=== PATIENT | male | born 1985 | race Caucasian/White ===

== ENCOUNTER 2021-08-06 20:04 | Emergency (ER) | payer SELFPAY ==
[~2021-08-06] VITALS: Ht 179 cm; Wt 61.2 kg
[~2021-08-06 20:04] MED LIST: ACHD5005 PO; ALPR.5T; ALPR.5T PO; AZIT250T12 PO; CARB100T; CEFP500T4 PO; CEPH-507 PO; CLIN300C3 PO; CODE118S4 PO; CYCL10TA9 PO; DOCU-143 PO; HYDR-2997 PO; HYDR-4226 PO; HYDR1TAB PO; LINE600T12 PO; LTRS15C TOP; MUPI22OI2 TOP; NAPR-243 PO; NAPR550T PO; ORPH100T PO; OSLT75C PO; PRD10T PO; PROP1TAB77 PO; QUET150T; QUET150T PO; SULF1TAB38 PO; TRM50T; TRM50T PO
--- NOTE | 2021-08-06 20:27 | ED General ---
General Stated Complaint: LIGHT HEADED, VOM Source of Information: Patient Exam Limitations: No Limitations History of Present Illness Date Seen by Provider: Aug 06, 2021 Time Seen by Provider: 20:24 Initial Comments To ER with reports of lightheadedness. Has been lightheaded anytime that he lays flat on his back since the head injury in the remote past. He was laying on his back working on a vehicle today when it started. Typically it goes away when he changes position but it has persisted throughout the day today. He has had some nausea and poor intake of food and fluids. Timing/Duration: 4-6 Hours Severity: Moderate Associated Systoms: Nausea/Vomiting Allergies and Home Medications Allergies Coded Allergies: Penicillins (Verified Allergy, Severe, Angioedema, 08/06/21) Sulfa (Sulfonamide Antibiotics) (Verified Allergy, Severe, Angioedema, 08/06/21) Patient Home Medication List Home Medication List Reviewed: Yes Review of Systems Review of Systems Constitutional: see HPI, dizziness EENTM: see HPI Respiratory: no symptoms reported Cardiovascular: no symptoms reported Gastrointestinal: nausea Genitourinary: no symptoms reported Musculoskeletal: no symptoms reported Skin: no symptoms reported Psychiatric/Neurological: No Symptoms Reported Hematologic/Lymphatic: No Symptoms Reported Physical Exam Vital Signs Vital Signs - First Documented 08/06/21 20:15 Temp 36.5 Pulse 59 Resp 24 B/P (MAP) 124/86 (99) Pulse Ox 98 Capillary Refill : Height, Weight, BMI Height: '" Weight: lbs. oz. kg; BMI Method: General Appearance: No Apparent Distress, WD/WN Eyes: Bilateral Eye Normal Inspection, Bilateral Eye PERRL, Bilateral Eye EOMI, Bilateral Eye Other (There is no nystagmus) HEENT: PERRL/EOMI, TMs Normal Neck: Full Range of Motion, Normal Inspection Respiratory: No Accessory Muscle Use, No Respiratory Distress Cardiovascular: Regular Rate, Rhythm, Normal Peripheral Pulses Gastrointestinal: Normal Bowel Sounds, Non Tender, Soft Extremity: Normal Capillary Refill, Normal Inspection Neurologic/Psychiatric: Alert, Oriented x3 Progress/Results/Core Measures Suspected Sepsis SIRS Temperature: Pulse: Respiratory Rate: Laboratory Tests 08/06/21 20:21: White Blood Count 9.7 Blood Pressure / Mean: Laboratory Tests 08/06/21 20:21: Creatinine 0.87, Platelet Count 268, Total Bilirubin 0.3 Results/Orders Lab Results Laboratory Tests Test 08/06/21 20:21 Range/Units White Blood Count 9.7 4.3-11.0 10^3/uL Red Blood Count 5.04 4.30-5.52 10^6/uL Hemoglobin 15.5 13.3-17.7 g/dL Hematocrit 45 40-54 % Mean Corpuscular Volume 89 80-99 fL Mean Corpuscular Hemoglobin 31 25-34 pg Mean Corpuscular Hemoglobin Concent 35 32-36 g/dL Red Cell Distribution Width 12.3 10.0-14.5 % Platelet Count 268 130-400 10^3/uL Mean Platelet Volume 9.9 9.0-12.2 fL Immature Granulocyte % (Auto) 0 % Neutrophils (%) (Auto) 58 42-75 % Lymphocytes (%) (Auto) 33 12-44 % Monocytes (%) (Auto) 6 0-12 % Eosinophils (%) (Auto) 2 0-10 % Basophils (%) (Auto) 1 0-10 % Neutrophils # (Auto) 5.6 1.8-7.8 10^3/uL Lymphocytes # (Auto) 3.2 1.0-4.0 10^3/uL Monocytes # (Auto) 0.6 0.0-1.0 10^3/uL Eosinophils # (Auto) 0.2 0.0-0.3 10^3/uL Basophils # (Auto) 0.1 0.0-0.1 10^3/uL Immature Granulocyte # (Auto) 0.0 0.0-0.1 10^3/uL Sodium Level 137 135-145 MMOL/L Potassium Level 3.4 L 3.6-5.0 MMOL/L Chloride Level 106 98-107 MMOL/L Carbon Dioxide Level 19 L 21-32 MMOL/L Anion Gap 12 5-14 MMOL/L Blood Urea Nitrogen 5 L 7-18 MG/DL Creatinine 0.87 0.60-1.30 MG/DL Estimat Glomerular Filtration Rate 115 BUN/Creatinine Ratio 6 Glucose Level 120 H 70-105 MG/DL Calcium Level 9.4 8.5-10.1 MG/DL Corrected Calcium 9.2 8.5-10.1 MG/DL Total Bilirubin 0.3 0.1-1.0 MG/DL Aspartate Amino Transf (AST/SGOT) 40 H 5-34 U/L Alanine Aminotransferase (ALT/SGPT) 27 0-55 U/L Alkaline Phosphatase 66 40-136 U/L Total Protein 7.2 6.4-8.2 GM/DL Albumin 4.2 3.2-4.5 GM/DL My Orders Orders - TYRON MARISCAL APRN Cbc With Automated Diff (08/06/21 20:23) Comprehensive Metabolic Panel (08/06/21 20:23) Ed Iv/Invasive Line Start (08/06/21 20:23) Lactated Ringers (Lr 1000 Ml Iv Solution (08/06/21 20:30) Ondansetron Injection (Zofran Injectio (08/06/21 20:30) Meclizine Tablet (Antivert Tablet) (08/06/21 20:30) Medications Given in ED Current Medications Medications Dose Ordered Sig/Erika Route Start Time Stop Time Status Last Admin Dose Admin Meclizine HCl 25 mg ONCE ONCE PO 08/06/21 20:30 08/06/21 20:31 DC 08/06/21 20:46 25 MG Ondansetron HCl 4 mg ONCE ONCE IVP 08/06/21 20:30 08/06/21 20:31 DC 08/06/21 20:46 4 MG Vital Signs/I&O 08/06/21 20:15 Temp 36.5 Pulse 59 Resp 24 B/P (MAP) 124/86 (99) Pulse Ox 98 Capillary Refill : Departure Impression Primary Impression: Dizziness Disposition: 01 HOME, SELF-CARE Condition: Stable Departure-Patient Inst. Decision time for Depature: 20:31 Referrals: [facility] (PCP/Family) Primary Care Physician Patient Instructions: Dizziness, Adult ED TYRON MARISCAL APRN Aug 06, 2021 20:27
[2021-08-06] MEDS ORDERED: MECLIZINE 25 MG (ANTIVERT) TAB PO ONE (20:30)
[2021-08-06] MEDS ORDERED: ONDANSETRON 4 MG/2 ML (SDV) Z0FRAN IVP ONE (20:30)
[2021-08-06] MEDS ORDERED: LACTATED RINGERS 1,000 ML IV SCH (20:30)
[2021-08-06 20:31] LABS: BASOPHILS # (AUTO) 0.1 10^3/uL (0.0-0.1); BASOPHILS % (AUTO) 1 % (0-10); EOSINOPHILS # (AUTO) 0.2 10^3/uL (0.0-0.3); EOSINOPHILS % (AUTO) 2 % (0-10); HEMATOCRIT 45 % (40-54); HEMOGLOBIN 15.5 g/dL (13.3-17.7); LYMPHOCYTES # (AUTO) 3.2 10^3/uL (1.0-4.0); LYMPHOCYTES % (AUTO) 33 % (12-44); MEAN CORPUSCULAR HEMOGLOBIN 31 pg (25-34); MEAN CORPUSCULAR HGB CONC 35 g/dL (32-36); MEAN CORPUSCULAR VOLUME 89 fL (80-99); MEAN PLATELET VOLUME 9.9 fL (9.0-12.2); MONOCYTES # (AUTO) 0.6 10^3/uL (0.0-1.0); MONOCYTES % (AUTO) 6 % (0-12); NEUTROPHILS # (AUTO) 5.6 10^3/uL (1.8-7.8); NEUTROPHILS % (AUTO) 58 % (42-75); PLATELET COUNT 268 10^3/uL (130-400); WHITE BLOOD COUNT 9.7 10^3/uL (4.3-11.0)
[2021-08-06 20:43] LABS: ALBUMIN 4.2 GM/DL (3.2-4.5)
[2021-08-06 20:44] LABS: POTASSIUM 3.4 MMOL/L (3.6-5.0)
[2021-08-06 20:45] LABS: CALCIUM 9.4 MG/DL (8.5-10.1)
[2021-08-06 20:46] LABS: TOTAL PROTEIN 7.2 GM/DL (6.4-8.2)
[2021-08-06 20:48] LABS: BILIRUBIN,TOTAL 0.3 MG/DL (0.1-1.0)
[2021-08-06 20:49] LABS: CREATININE SERUM 0.87 MG/DL (0.60-1.30)
[2021-08-06] MEDS ORDERED: SCOPOLAMINE 1.5 MG (TRANSDERM-SCOP) PATCH TD ONE (21:15)
[2021-08-06 21:25] VITALS: BP 117/84
== END 2021-08-06 21:27 | disposition home or self-care (01) ==
LOC: EDUNIT# 20:04 → ER 20:09
DX: R42 Dizziness and giddiness (principal)
CPT/HCPCS: 36415; 80053; 85025

== ENCOUNTER 2021-08-17 18:05 | Emergency (ER) | payer SELFPAY ==
[~2021-08-17] VITALS: Ht 177.8 cm; Wt 63.5 kg
[2021-08-17 18:25] VITALS: BP 123/90
--- NOTE | 2021-08-17 18:37 | ED Back Pain ---
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 NO PARESTHESIAS OR MOTOR DEFICITS NO RADIATION OF PAIN NO SHORTNESS OF BREATH NO NAUSEA/VOMITING NO URINARY SYMPTOMS NO COUGH NO FEVER/SWEATS/CHILLS TOOK TYLENOL AT 11:00 AM TODAY HAS TAKEN IBUPROFEN AT TIMES, BUT NOT TODAY HAS NOT SOUGHT CARE UNTIL TODAY NO HISTORY OF SIMILAR DENIES ANY CHRONIC ILLNESSES MULTIPLE VISITS--MOST FOR VARIOUS PAIN COMPLAINTS / INJURIES Other Comments PCP: [facility] Allergies and Home Medications Allergies Coded Allergies: Penicillins (Verified Allergy, Severe, Angioedema, 08/06/21) Sulfa (Sulfonamide Antibiotics) (Verified Allergy, Severe, Angioedema, 08/06/21) propoxyphene (Unverified Allergy, Mild, 08/09/21) shellfish derived (Unverified Allergy, Unknown, RASH, 08/09/21) FROM UNCODED ALLERGIES Uncoded Allergies: IVORY SOAP (Allergy, Mild, 08/09/21) Patient Home Medication List Home Medication List Reviewed: Yes Linezolid (Zyvox) 600 Mg Tablet, 600 MG PO BID Prescribed by: DEBORAH LAMBERT on 01/16/19 1053 Mupirocin (Mupirocin) 22 Gm Oint...g., 1 GM TOP BID Prescribed by: DEBORAH LAMBERT on 01/16/19 1053 Review of Systems Constitutional: no symptoms reported EENTM: no symptoms reported Respiratory: no symptoms reported Cardiovascular: no symptoms reported Gastrointestinal: no symptoms reported Genitourinary: no symptoms reported Musculoskeletal: see HPI Skin: no symptoms reported Psychiatric/Neurological: No Symptoms Reported Past Btdceat-Ulffvq-Zybsjf Hx Patient Social History Tobacco Use?: Yes Tobacco type used: Cigarettes Smoking Status: Current Everyday Smoker Substance use?: Yes Substance type: Methamphetamine, Marijuana Alcohol Use?: Yes Alcohol Frequency: Once in a while Immunizations Up To Date Tetanus Booster (TDap): Less than 5yrs Seasonal Allergies Seasonal Allergies: No Past Medical History Surgeries: Yes (HERNIA REPAIR A CHILD. ) Abdominal Respiratory: No Cardiac: No Neurological: No Genitourinary: No Gastrointestinal: No Musculoskeletal: Yes (MULTIPLE fractures including R scapula, R ribs & R clavicle 2019-[employer]KE) Fractures Endocrine: No HEENT: No Cancer: No Psychosocial: Yes (SUBSTANCE ABUSE) Integumentary: No Blood Disorders: No Family Medical History Asthma 19 FATHER FH: COPD (chronic obstructive pulmonary disease) 19 FATHER Hypertension 19 FATHER Seizure disorder 19 MOTHER No Pertinent Family Hx, Heart Disease, Cancer, Hypertension SOCIAL HISTORY: -SMOKES 1 PPD -ETOH--OCCASIONAL USE -DRUGS--HX OF SMOKING METH, CLAIMS NONE IN 3 YEARS, ON 08/17/21 Physical Exam Vital Signs Vital Signs - First Documented 08/17/21 18:25 Pulse 77 Resp 20 B/P (MAP) 123/90 (101) Pulse Ox 98 O2 Delivery Room Air Capillary Refill : Height, Weight, BMI Height: 5'10.00" Weight: 138lbs. 6.0oz. [id number]; 19.00 BMI Method:Stated General Appearance: WD/WN, Thin, Other (WALKS UPRIGHT VERY SLOWLY AND VERY DRAMATICALLY--MOANING AND GRUNTING. MARKEDLY EXAGGERATED PAIN RESPONSE--JERKS AND MOANS LOUDLY EVEN BEFORE HE IS TOUCHED, AND WITH VERY SLIGHT TOUCH; REEKS OF CIGARETTES) Neck: Full Range of Motion, Normal Inspection, Non Tender, Supple Cardiovascular: Regular Rate, Rhythm, No Edema, No JVD, No Murmur, Normal Peripheral Pulses Respiratory: Normal Breath Sounds, No Accessory Muscle Use, No Respiratory Distress, Other (DIFFUSE RIGHT CHEST WALL TENDERNESS--ANTERIORLY AND POSTERIORLY) Gastrointestinal: Non Tender, Soft Back: No Vertebral Tenderness, Other (DIFFUSE RIGHT POSTERIOR CHEST TENDERNESS. NO DEFORMITY. NO EXTERNAL EVIDENCE OF TRAUMA. NO RASH) Extremity: Normal Capillary Refill, Normal Inspection, Normal Range of Motion, Non Tender, No Calf Tenderness, No Pedal Edema Neurologic/Psychiatric: Alert, Oriented x3, No Motor/Sensory Deficits, turnstile collector II- XII Norm as Tested Skin: Normal Color, Warm/Dry; No Rash Procedures/Interventions Suture Size: 4-0 Progress/Results/Core Measures Results/Orders Lab Results Laboratory Tests Test 08/17/21 18:45 Range/Units Urine Color YELLOW Urine Clarity CLEAR Urine pH 6.0 5-9 Urine Specific Ulen 1.025 H 1.016-1.022 Urine Protein NEGATIVE NEGATIVE Urine Glucose (UA) NEGATIVE NEGATIVE Urine Ketones NEGATIVE NEGATIVE Urine Nitrite NEGATIVE NEGATIVE Urine Bilirubin NEGATIVE NEGATIVE Urine Urobilinogen 0.2 < = 1.0 MG/DL Urine Leukocyte Esterase NEGATIVE NEGATIVE Urine RBC (Auto) NEGATIVE NEGATIVE Urine RBC NONE /HPF Urine WBC NONE /HPF Urine Crystals PRESENT H /LPF Urine Amorphous Sediment RARE ARI URATES H /LPF Urine Bacteria NEGATIVE /HPF Urine Casts NONE /LPF Urine Mucus SMALL H /LPF Urine Culture Indicated NO Urine Opiates Screen POSITIVE H NEGATIVE Urine Oxycodone Screen NEGATIVE NEGATIVE Urine Methadone Screen NEGATIVE NEGATIVE Urine Propoxyphene Screen NEGATIVE NEGATIVE Urine Barbiturates Screen NEGATIVE NEGATIVE Ur Tricyclic Antidepressants Screen NEGATIVE NEGATIVE Urine Phencyclidine Screen NEGATIVE NEGATIVE Urine Amphetamines Screen NEGATIVE NEGATIVE Urine Methamphetamines Screen NEGATIVE NEGATIVE Urine Benzodiazepines Screen NEGATIVE NEGATIVE Urine Cocaine Screen NEGATIVE NEGATIVE Urine Cannabinoids Screen POSITIVE H NEGATIVE My Orders Orders - GERALDINE SALAS DO Drug Screen Stat (Urine) (08/17/21 18:31) Ua Culture If Indicated (08/17/21 18:31) Chest Pa/Lat (2 View) (08/17/21 18:31) Ribs, Right 2-3 Views (08/17/21 18:31) Vital Signs/I&O 08/17/21 18:25 Pulse 77 Resp 20 B/P (MAP) 123/90 (101) Pulse Ox 98 O2 Delivery Room Air Diagnostic Imaging Comments XRAYS--PER RADIOLOGIST REPORTS AT 1905 CXR-- FINDINGS: Lungs/pleura: Lungs are clear. There is no pneumothorax. There is no pleural effusion. Mediastinum: Unremarkable. Pulmonary vasculature: Unremarkable. Heart: Unremarkable. Bones/extrathoracic soft tissue: Unremarkable. IMPRESSION: There is no radiographic evidence of acute cardiopulmonary process. RIGHT RIBS-- FINDINGS AND IMPRESSION: 1: There is bony thickening and callus formation involving the posterior aspect of the right T2, T3, T4, T5, T6, and T7 ribs which appear to represent old healed fractures. 2: There is no definite acute fracture seen on this exam. 3: There is no other chest abnormality seen. Reviewed: Reviewed by Me Departure Impression Primary Impression: Right-sided chest wall pain Additional Impression: Upper back pain on right side Disposition: 01 HOME, SELF-CARE Condition: Stable Departure-Patient Inst. Decision time for Depature: 19:10 Referrals: [facility] (PCP/Family) Primary Care Physician Patient Instructions: Upper Back Pain, Back Muscle Strain (DC), Muscle Strain (DC) Add. Discharge Instructions: ALTERNATE ICE AND HEAT TO SORE AREAS AT 2O MINUTE INTERVALS FOLLOW UP WITH [facility] IN 1 WEEK FOR FURTHER CARE Scripts Cyclobenzaprine HCl (Cyclobenzaprine HCl) 10 Mg Tablet 10 MG PO Q8H PRN for SPASMS, #15 TAB 0 Refills Prov: GERALDINE SALAS DO 08/17/21 Naproxen (Naproxen) 500 Mg Tablet.dr 500 MG PO BID, #20 TAB Prov: GERALDINE SALAS DO 08/17/21 GERALDINE SALAS DO Aug 17, 2021 18:37
[2021-08-17 18:49] LABS: BILIRUBIN,URINE NEGATIVE (NEGATIVE); CLARITY,URINE CLEAR; COLOR,URINE YELLOW; GLUCOSE, URINE (UA) NEGATIVE (NEGATIVE); KETONES,URINE NEGATIVE (NEGATIVE); LEUKOCYTE ESTERASE ,URINE NEGATIVE (NEGATIVE); NITRITE,URINE NEGATIVE (NEGATIVE); PROTEIN,URINE NEGATIVE (NEGATIVE)
--- NOTE | 2021-08-17 19:00 | Diagnostic Imaging Report ---
CLINICAL INDICATION: Patient with pain in the right chest and back. EXAM: Chest x-ray, PA and lateral views. COMPARISON: Chest x-ray dated 10/05/2018. FINDINGS: Lungs/pleura: Lungs are clear. There is no pneumothorax. There is no pleural effusion. Mediastinum: Unremarkable. Pulmonary vasculature: Unremarkable. Heart: Unremarkable. Bones/extrathoracic soft tissue: Unremarkable. IMPRESSION: There is no radiographic evidence of acute cardiopulmonary process. Dictated by: Dictated on workstation # [id number]
[2021-08-17 19:01] LABS: AMORPHOUS SEDIMENT,UR RARE AMOR URATES /LPF; BACTERIA,URINE NEGATIVE /HPF
[2021-08-17 19:03] LABS: AMPHETAMINE SCREEN, URINE NEGATIVE (NEGATIVE); BARBITURATE SCREEN URINE NEGATIVE (NEGATIVE); BENZODIAZEPINES SCREEN URINE NEGATIVE (NEGATIVE); CANNABINOID SCREEN, URINE POSITIVE (NEGATIVE); COCAINE SCREEN URINE NEGATIVE (NEGATIVE); METHADONE STAT NEGATIVE (NEGATIVE); METHAMPHETAMINE SCREEN URINE S NEGATIVE (NEGATIVE); OPIATE SCREEN URINE POSITIVE (NEGATIVE); OXYCODONE STAT NEGATIVE (NEGATIVE); PROPOXYPHENE STAT NEGATIVE (NEGATIVE); TRICYCLIC ANTIDEPRESSANTS SCRE NEGATIVE (NEGATIVE)
--- NOTE | 2021-08-17 19:03 | Diagnostic Imaging Report ---
CLINICAL INDICATION: Patient with pain in chest and back. EXAM: X-ray of the right ribs, two views. COMPARISON: Chest x-ray dated 08/17/2021. FINDINGS AND IMPRESSION: 1: There is bony thickening and callus formation involving the posterior aspect of the right T2, T3, T4, T5, T6, and T7 ribs which appear to represent old healed fractures. 2: There is no definite acute fracture seen on this exam. 3: There is no other chest abnormality seen. Dictated by: Dictated on workstation # [id number]
[2021-08-17] MEDS ORDERED: CYCL10TA25 PO (19:13)
[2021-08-17] MEDS ORDERED: NAPR500T8 PO (19:13)
[2021-08-17] MEDS ORDERED: ORPHENADRINE 60 MG/2 ML (NORFLEX) AMP (ED ONLY) IM STA (19:13)
[2021-08-17] MEDS ORDERED: KETOROLAC 60 MG/2 ML VIAL IM STA (19:13)
[2021-08-17] MEDS ORDERED: ORPHENADRINE 60 MG/2 ML (NORFLEX) AMP (ED ONLY) ONE (19:19)
[2021-08-17] MEDS ORDERED: KETOROLAC 60 MG/2 ML VIAL ONE (19:19)
== END 2021-08-17 19:31 | disposition home or self-care (01) ==
LOC: EDUNIT# 18:05 → ER 18:07
DX: R07.89 Other chest pain (principal); M54.6 Pain in thoracic spine; F17.210 Nicotine dependence, cigarettes, uncomplicated
CPT/HCPCS: 71046; 71100; 80306; 81000; 99284

== ENCOUNTER 2021-11-05 18:25 | Emergency (ER) | payer SELFPAY ==
[~2021-11-05 18:25] MED LIST changes: +CYCL10TA25 PO; +NAPR500T8 PO
[2021-11-05 18:55] VITALS: BP 131/78
[2021-11-05] MEDS ORDERED: NS IV 1000 ML 1,000 ML IV STA ×2 (19:01→20:39)
--- NOTE | 2021-11-05 19:06 | ED Cough/URI ---
General Chief Complaint: Cough/Cold/Flu Symptoms Stated Complaint: FEVER/VOMITING/BODYACHES Source: patient Exam Limitations: no limitations History of Present Illness Date Seen by Provider: Nov 05, 2021 Time Seen by Provider: 19:03 Initial Comments Patient is a 36-year-old male who presents ED for generalized weakness, body cramping fatigue. Symptoms started this morning. 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 He states he sat on the sidewalk and passed out. Unclear how long he passed out for. Denies falling and hitting his head. Woke up with a headache with diffuse body cramps and cramping. Attempted to drink fluid but was unsuccessful. Has not been able to eat.. Vo mited at least 5 times since noon today. Denies of any cough, fever, chest pain, abdominal pain, drug use, alcohol use. States he feels weak and fatigued. Dry heaving on arrival. Head pain described as dull and achy and diffuse. Denies the worst headache of his life, neck pain, visual changes, ear pain, dysuria, hematuria. Patient alert and orient x4. GCS 15. Denies of any focal neural deficits, facial droop, slurred speech. Allergies and Home Medications Allergies Coded Allergies: Penicillins (Verified Allergy, Severe, Angioedema, 08/06/21) Sulfa (Sulfonamide Antibiotics) (Verified Allergy, Severe, Angioedema, 08/06/21) propoxyphene (Unverified Allergy, Mild, 08/09/21) shellfish derived (Unverified Allergy, Unknown, RASH, 08/09/21) FROM UNCODED ALLERGIES Uncoded Allergies: IVORY SOAP (Allergy, Mild, 08/09/21) Patient Home Medication List Home Medication List Reviewed: Yes Cyclobenzaprine HCl (Cyclobenzaprine HCl) 10 Mg Tablet, 10 MG PO Q8H PRN for SPASMS Prescribed by: GERALDINE SALAS on 08/17/211912 Linezolid (Zyvox) 600 Mg Tablet, 600 MG PO BID Prescribed by: DEBORAH LAMBERT on 01/16/19 1053 Mupirocin (Mupirocin) 22 Gm Oint...g., 1 GM TOP BID Prescribed by: DEBORAH LAMBERT on 01/16/19 1053 Naproxen (Naproxen) 500 Mg Tablet.dr, 500 MG PO BID Prescribed by: GERALDINE SALAS on 08/17/211912 Nirmatrelvir/Ritonavir (Paxlovid 150-100 mg Pack (Eua)) 150 Mg-100 Mg Tablet, 1 EACH PO BID Prescribed by: SELINA DASILVA on 11/05/212125 Review of Systems Review of Systems Constitutional: No chills, No diaphoresis, No malaise, No weakness EENTM: No blurred vision, No double vision Respiratory: No cough, No dyspnea on exertion, No short of breath Cardiovascular: No chest pain Gastrointestinal: No abdominal pain, No diarrhea; nausea, vomiting Genitourinary: No decreased output, No discharge Musculoskeletal: No back pain, No joint pain Skin: No change in color, No change in hair/nails Psychiatric/Neurological: Headache All Other Systems Reviewed Negative Unless Noted: Yes Past Nsrbhog-Devybe-Gwkaai Hx Immunizations Up To Date Tetanus Booster (TDap): Less than 5yrs Seasonal Allergies Seasonal Allergies: No Past Medical History Surgeries: Yes (HERNIA REPAIR A CHILD. ) Abdominal Respiratory: No Cardiac: No Neurological: No Genitourinary: No Gastrointestinal: No Musculoskeletal: Yes (MULTIPLE fractures including R scapula, R ribs & R clavicle 2019-[employer]) Fractures Endocrine: No HEENT: No Cancer: No Psychosocial: Yes (SUBSTANCE ABUSE) Integumentary: No Blood Disorders: No Family Medical History Asthma 19 FATHER FH: COPD (chronic obstructive pulmonary disease) 19 FATHER Hypertension 19 FATHER Seizure disorder 19 MOTHER No Pertinent Family Hx, Heart Disease, Cancer, Hypertension SOCIAL HISTORY: -SMOKES 1 PPD -ETOH--OCCASIONAL USE -DRUGS--HX OF SMOKING METH, CLAIMS NONE IN 3 YEARS, ON 08/17/21 Physical Exam Vital Signs - First Documented 11/05/21 18:55 Temp 37.2 Pulse 83 Resp 20 B/P (MAP) 131/78 (95) Capillary Refill : Height: 5'10.00" Weight: 138lbs. 6.0oz. 62.558541dc; 20.00 BMI Method:Stated General Appearance: WD/WN, no apparent distress Eyes: Bilateral Eye Normal Inspection, Bilateral Eye PERRL, Bilateral Eye EOMI HEENT: PERRL/EOMI, normal ENT inspection, TMs normal, pharynx normal Neck: non-tender, full range of motion, supple, normal inspection Respiratory: chest non-tender, lungs clear, normal breath sounds, no respiratory distress, no accessory muscle use Cardiovascular: regular rate, rhythm, no edema, no gallop, no JVD Gastrointestinal: normal bowel sounds, non tender, soft, no organomegaly Extremities: normal range of motion, non-tender, normal inspection Neurologic/Psychiatric: debt collector II-XII nml as tested, no motor/sensory deficits, alert, normal mood/affect, oriented x 3 Skin: normal color, warm/dry Procedures/Interventions Suture Size: 4-0 Progress/Results/Core Measures Suspected Sepsis SIRS Temperature: Pulse: Respiratory Rate: Laboratory Tests 11/05/21 18:55: White Blood Count 5.6 Blood Pressure / Mean: Laboratory Tests 11/05/21 18:55: Creatinine 0.96, Platelet Count 182, Total Bilirubin 0.7 Results/Orders Lab Results Laboratory Tests Test 11/05/21 18:50 11/05/21 18:55 Range/Units Influenza Type A (RT-PCR) Not Detected Not Detecte Influenza Type B (RT-PCR) Not Detected Not Detecte SARS-CoV-2 RNA (RT-PCR) Detected H Not Detecte White Blood Count 5.6 4.3-11.0 10^3/uL Red Blood Count 4.88 4.30-5.52 10^6/uL Hemoglobin 14.8 13.3-17.7 g/dL Hematocrit 43 40-54 % Mean Corpuscular Volume 88 80-99 fL Mean Corpuscular Hemoglobin 30 25-34 pg Mean Corpuscular Hemoglobin Concent 35 32-36 g/dL Red Cell Distribution Width 12.0 10.0-14.5 % Platelet Count 182 130-400 10^3/uL Mean Platelet Volume 10.4 9.0-12.2 fL Immature Granulocyte % (Auto) 0 % Neutrophils (%) (Auto) 83 H 42-75 % Lymphocytes (%) (Auto) 7 L 12-44 % Monocytes (%) (Auto) 9 0-12 % Eosinophils (%) (Auto) 1 0-10 % Basophils (%) (Auto) 1 0-10 % Neutrophils # (Auto) 4.6 1.8-7.8 10^3/uL Lymphocytes # (Auto) 0.4 L 1.0-4.0 10^3/uL Monocytes # (Auto) 0.5 0.0-1.0 10^3/uL Eosinophils # (Auto) 0.1 0.0-0.3 10^3/uL Basophils # (Auto) 0.0 0.0-0.1 10^3/uL Immature Granulocyte # (Auto) 0.0 0.0-0.1 10^3/uL Neutrophils % (Manual) 79 % Lymphocytes % (Manual) 9 % Monocytes % (Manual) 11 % Band Neutrophils 1 % Blood Morphology Comment NORMAL Sodium Level 141 135-145 MMOL/L Potassium Level 3.7 3.6-5.0 MMOL/L Chloride Level 106 98-107 MMOL/L Carbon Dioxide Level 23 21-32 MMOL/L Anion Gap 12 5-14 MMOL/L Blood Urea Nitrogen 7 7-18 MG/DL Creatinine 0.96 0.60-1.30 MG/DL Estimat Glomerular Filtration Rate 106 BUN/Creatinine Ratio 7 Glucose Level 96 70-105 MG/DL Calcium Level 9.3 8.5-10.1 MG/DL Corrected Calcium 9.0 8.5-10.1 MG/DL Magnesium Level 1.9 1.6-2.4 MG/DL Total Bilirubin 0.7 0.1-1.0 MG/DL Aspartate Amino Transf (AST/SGOT) 33 5-34 U/L Alanine Aminotransferase (ALT/SGPT) 23 0-55 U/L Alkaline Phosphatase 61 40-136 U/L Total Creatine Kinase 702 H 30-200 U/L Total Protein 7.1 6.4-8.2 GM/DL Albumin 4.4 3.2-4.5 GM/DL My Orders Orders - KIRSTIN CAMPBELL Covid 19 Inhouse Test (11/05/21 18:29) Influenza A And B By Pcr (11/05/21 18:29) Cbc With Automated Diff (11/05/21 19:01) Comprehensive Metabolic Panel (11/05/21 19:01) Magnesium (11/05/21 19:01) Creatine Kinase (11/05/21 19:01) Ns Iv 1000 Ml (Sodium Chloride 0.9%) (11/05/21 19:01) Ondansetron Injection (Zofran Injectio (11/05/21 19:15) Manual Differential (11/05/21 18:55) Promethazine Injection (Phenergan Injec (11/05/21 20:00) Ns Iv 1000 Ml (Sodium Chloride 0.9%) (11/05/21 20:39) Acetaminophen Tablet (Tylenol Tablet) (11/05/21 21:15) Medications Given in ED Vital Signs/I&O 11/05/21 18:55 Temp 37.2 Pulse 83 Resp 20 B/P (MAP) 131/78 (95) Capillary Refill : Departure Communication (PCP) Patient is complaining of generalized body pain, cramping. Symptoms started today. States he passed out while sitting on the sidewalk after work. Initially concern for rhabdo secondary to the diffuse muscle cramping. Patient started complaining of cough body aches fatigue which could be recent related to a viral infection. Patient tested positive for COVID. Patient lab work was otherwise unremarkable besides CK of 702. Attempted to give fluid but patient was not cooperating and not keeping out his arm. Patient became frustrated and states he wanted to leave. Discussed concerning for rhabdo which would likely benefit with IV fluids. Very mild rhabdo. patient is not up-to-date on his COVID discussed potential monoclonal antibody versus paxlovid. Patient refused monoclonal antibody but was agreeable to the paxlovid. Patient is not currently on any statins. Denies history of HIV. Patient refused providing urinalysis. Patient with dry heaving here. Was given Zofran and Phenergan. Patient was sticking a finger down his mouth which may be resulting of his vomiting. Refused a second liter of fluid. Discussed concerns with rhabdomyolysis. Patient acknowledges. Return precaution were discussed with patient. Follow-up outpatient with PCP in 2 to 3 days Impression Primary Impression: COVID-19 Disposition: 01 HOME, SELF-CARE Condition: Stable Departure-Patient Inst. Decision time for Depature: 21:19 Referrals: [facility]LOCAL PHYSICIAN (PCP) Primary Care Physician Patient Instructions: COVID-19 ED Add. Discharge Instructions: Recommend quarantine at home. Recommend staying hydrated. Tylenol ibuprofen fo r fever headache body aches. If any worsening symptoms return back to ED. All discharge instructions reviewed with patient and/or family. Voiced understanding. Scripts Nirmatrelvir/Ritonavir (Paxlovid 150-100 mg Pack (Eua)) 150 Mg-100 Mg Tablet 1 EACH PO BID for 5 Days, #10 TAB Prov: KIRSTIN CAMPBELL 11/05/21 Work/School Note: Work Release Form Date Seen in the Emergency Department: Nov 05, 2021 Return to Work: Nov 14, 2021 KIRSTIN CAMPBELL Nov 05, 2021 19:06
[2021-11-05] MEDS ORDERED: ONDANSETRON 4 MG/2 ML (SDV) Z0FRAN IVP ONE (19:15)
[2021-11-05 19:17] LABS: BASOPHILS % (AUTO) 1 % (0-10); EOSINOPHILS # (AUTO) 0.1 10^3/uL (0.0-0.3); EOSINOPHILS % (AUTO) 1 % (0-10); HEMATOCRIT 43 % (40-54); HEMOGLOBIN 14.8 g/dL (13.3-17.7); LYMPHOCYTES # (AUTO) 0.4 10^3/uL (1.0-4.0); LYMPHOCYTES % (AUTO) 7 % (12-44); MEAN CORPUSCULAR HEMOGLOBIN 30 pg (25-34); MEAN CORPUSCULAR HGB CONC 35 g/dL (32-36); MEAN CORPUSCULAR VOLUME 88 fL (80-99); MEAN PLATELET VOLUME 10.4 fL (9.0-12.2); MONOCYTES # (AUTO) 0.5 10^3/uL (0.0-1.0); MONOCYTES % (AUTO) 9 % (0-12); NEUTROPHILS # (AUTO) 4.6 10^3/uL (1.8-7.8); NEUTROPHILS % (AUTO) 83 % (42-75); PLATELET COUNT 182 10^3/uL (130-400); WHITE BLOOD COUNT 5.6 10^3/uL (4.3-11.0)
[2021-11-05 19:28] LABS: ALBUMIN 4.4 GM/DL (3.2-4.5); BILIRUBIN,TOTAL 0.7 MG/DL (0.1-1.0); CALCIUM 9.3 MG/DL (8.5-10.1); CREATININE SERUM 0.96 MG/DL (0.60-1.30); MAGNESIUM 1.9 MG/DL (1.6-2.4); POTASSIUM 3.7 MMOL/L (3.6-5.0); TOTAL PROTEIN 7.1 GM/DL (6.4-8.2)
[2021-11-05] MEDS ORDERED: PROMETHAZINE INJ 25 MG/ML (PHENERGAN) AMP IVP ONE (20:00)
[2021-11-05 20:44] LABS: BAND NEUTROPHILS 1 %; LYMPHOCYTES % (MANUAL) 9 %; MONOCYTES % (MANUAL) 11 %; NEUTROPHILS % (MANUAL) 79 %
[2021-11-05 20:45] LABS: RBC MORPH NORMAL
[2021-11-05] MEDS ORDERED: ACETAMINOPHEN 500 MG TAB (TYLENOL) PO ONE (21:15)
[2021-11-05] MEDS ORDERED: NIRM1TAB5 PO (21:26)
== END 2021-11-05 21:35 | disposition home or self-care (01) ==
LOC: EDUNIT# 18:25 → ER 18:26
DX: U07.1 COVID-19 (principal)
CPT/HCPCS: 36415; 80053; 82550; 83735; 85007; 85027; 87636; 99283

== ENCOUNTER 2022-04-04 23:04 | Emergency (ER) | payer SELFPAY ==
[~2022-04-04 23:04] MED LIST changes: +NIRM1TAB5 PO
[2022-04-04] MEDS ORDERED: CYCL5TAB PO (23:22)
[2022-04-04] MEDS ORDERED: KETO10TA PO (23:22)
[2022-04-04 23:23] VITALS: BP 118/102
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
[2022-04-04] MEDS ORDERED: KETOROLAC 30 MG/ML VIAL IM PRN (23:30)
[2022-04-04] MEDS ORDERED: CYCLOBENZAPRINE 10 MG (FLEXERIL) TAB PO SCH (23:30)
== END 2022-04-04 23:34 | disposition home or self-care (01) ==
LOC: EDUNIT# 23:04 → ER 23:07
DX: M54.6 Pain in thoracic spine (principal); Z28.310 Unvaccinated for COVID-19; Z88.5 Allergy status to narcotic agent; X50.0XXA Overexertion from strenuous movement or load, initial encounter
CPT/HCPCS: 99284

== ENCOUNTER 2022-09-20 09:18 | Emergency (ER) | payer SELFPAY ==
[~2022-09-20] VITALS: Ht 180 cm; Wt 120.0 kg
[~2022-09-20 09:18] MED LIST changes: +CYCL5TAB PO; +KETO10TA PO
[2022-09-20] MEDS ORDERED: PROMETHAZINE INJ 25 MG/ML (PHENERGAN) AMP IVP STA (09:25)
[2022-09-20] MEDS ORDERED: NS IV 1000 ML 1,000 ML IV STA (09:25)
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
[2022-09-20] MEDS ORDERED: MECLIZINE 25 MG (ANTIVERT) TAB PO ONE (09:30)
[2022-09-20] MEDS ORDERED: PROM25TA14 PO (09:40)
[2022-09-20 10:26] VITALS: BP 102/74
== END 2022-09-20 10:26 | disposition home or self-care (01) ==
LOC: EDUNIT# 09:18 → ER 09:20
DX: H81.10 Benign paroxysmal vertigo, unspecified ear (principal); Z28.310 Unvaccinated for COVID-19
CPT/HCPCS: 82947; 93005; 93041

== ENCOUNTER 2022-10-02 01:52 | Emergency (ER) | payer SELFPAY ==
[~2022-10-02] VITALS: Ht 180.3 cm; Wt 62.6 kg
[~2022-10-02 01:52] MED LIST changes: +PROM25TA14 PO
[2022-10-02 02:06] VITALS: BP 135/97
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
[2022-10-02] MEDS ORDERED: CYCLOBENZAPRINE 10 MG (FLEXERIL) TAB PO STA (02:37)
== END 2022-10-02 02:49 | disposition home or self-care (01) ==
LOC: EDUNIT# 01:52 → ER 01:55
DX: M77.8 Other enthesopathies, not elsewhere classified (principal); F17.210 Nicotine dependence, cigarettes, uncomplicated; Z87.828 Personal history of other (healed) physical injury and trauma; Z28.310 Unvaccinated for COVID-19
CPT/HCPCS: 99284

== ENCOUNTER 2022-11-08 21:36 | Emergency (ER) | payer SELFPAY ==
[~2022-11-08] VITALS: Ht 180.3 cm; Wt 62.1 kg
[2022-11-08 21:42] VITALS: BP 115/73
--- NOTE | 2022-11-08 21:56 | ED Back Pain ---
General Chief Complaint: Back Problems Stated Complaint: BACK PAIN Nursing Triage Note: PT AMB TO FT 2 W C/O BILAT ARM TINGLING X4 WKS, BACK PAIN SX LAST NIGHT, AND LEFT KNEE PAIN THAT BEGAN TONIGHT. PT A&OX4, DENIES INJ. History of Present Illness Date Seen by Provider: Nov 08, 2022 Time Seen by Provider: 21:54 Initial Comments 37-year-old male presents with upper back pain and paraspinal pain. 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 He also complains of bilateral arm tingling for at least 4 weeks worse with lifting holding his arms up. He denies any acute injury falls or other trauma. Allergies and Home Medications Allergies Coded Allergies: Penicillins (Verified Allergy, Severe, Angioedema, 08/06/21) Sulfa (Sulfonamide Antibiotics) (Verified Allergy, Severe, Angioedema, 08/06/21) propoxyphene (Unverified Allergy, Mild, 08/09/21) shellfish derived (Unverified Allergy, Unknown, RASH, 08/09/21) FROM UNCODED ALLERGIES tramadol (Verified Allergy, Unknown, 11/08/22) Uncoded Allergies: IVORY SOAP (Allergy, Mild, 08/09/21) Patient Home Medication List Home Medication List Reviewed: Yes Cyclobenzaprine HCl (Cyclobenzaprine HCl) 10 Mg Tablet, 10 MG PO Q8H PRN for SPASMS Prescribed by: GERALDINE SALAS on 08/17/211912 Cyclobenzaprine HCl (Cyclobenzaprine HCl) 5 Mg Tablet, 5 MG PO Q6H Prescribed by: DANITZA GRUBER on 11/08/222200 Ketorolac Tromethamine (Ketorolac Tromethamine) 10 Mg Tablet, 10 MG PO TID Prescribed by: YUSUF ARAIZA MD on 04/04/22 2322 Linezolid (Zyvox) 600 Mg Tablet, 600 MG PO BID Prescribed by: DEBORAH LAMBERT on 01/16/19 1053 Mupirocin (Mupirocin) 22 Gm Oint...g., 1 GM TOP BID Prescribed by: DEBORAH LAMBERT on 01/16/19 1053 Naproxen (Naproxen) 500 Mg Tablet.dr, 500 MG PO BID Prescribed by: DANITZA GRUBER on 11/08/222200 Nirmatrelvir/Ritonavir (Paxlovid 150-100 mg Pack (Eua)) 150 Mg-100 Mg Tablet, 1 EACH PO BID Prescribed by: SELINA DASILVA on 11/05/212125 Promethazine HCl (Promethazine Tablet) 25 Mg Tablet, 25 MG PO Q8H PRN for NAUSEA/VOMITING-2ND LINE Prescribed by: KIRSTIN ALMONTE on 09/20/22 0940 Review of Systems Constitutional: No chills, No fever Respiratory: no symptoms reported Cardiovascular: no symptoms reported Gastrointestinal: no symptoms reported Musculoskeletal: see HPI Skin: no symptoms reported Psychiatric/Neurological: No Symptoms Reported Past Cfhptpi-Yctdde-Pvzxjg Hx Patient Social History Tobacco Use?: Yes Tobacco type used: Cigarettes Smoking Status: Current Everyday Smoker Use of E-Cig and/or Vaping dev: No Substance use?: Yes Substance type: Marijuana Alcohol Use?: Yes Alcohol Frequency: Once in a while Immunizations Up To Date Tetanus Booster (TDap): Less than 5yrs Influenza Vaccine Up-to-Date: No; Not Current First/Initial COVID19 Vaccinat: NONE Second COVID19 Vaccination Garfield: NONE Third COVID19 Vaccination Date: NONE COVID19 Vaccine Clutch Mechanic: NONE Seasonal Allergies Seasonal Allergies: No Past Medical History Surgery/Hospitalization HX: HERNIA AFTER Surgeries: Yes (HERNIA REPAIR A CHILD. ) Abdominal Respiratory: No Cardiac: No Neurological: No Genitourinary: No Gastrointestinal: No Musculoskeletal: Yes (MULTIPLE fractures including R scapula, R ribs & R clavicle 2019-[facility]) Fractures Endocrine: No HEENT: No Cancer: No Psychosocial: Yes (SUBSTANCE ABUSE) Integumentary: No Blood Disorders: No Family Medical History Asthma 19 FATHER FH: COPD (chronic obstructive pulmonary disease) 19 FATHER Hypertension 19 FATHER Seizure disorder 19 MOTHER No Pertinent Family Hx, Heart Disease, Cancer, Hypertension SOCIAL HISTORY: -SMOKES 1 PPD -ETOH--OCCASIONAL USE -DRUGS--HX OF SMOKING METH, CLAIMS NONE IN 3 YEARS, ON 08/17/21 Physical Exam Vital Signs Vital Signs - First Documented 11/08/22 21:42 Temp 36.6 Pulse 70 Resp 18 B/P (MAP) 115/73 (87) Pulse Ox 98 O2 Delivery Room Air Capillary Refill : Less Than 3 Seconds Height, Weight, BMI Height: 5'10.00" Weight: 138lbs. 6.0oz. 62.435691ux; 19.00 BMI Method:Stated General Appearance: No Apparent Distress, WD/WN Cardiovascular: Regular Rate, Rhythm, No Edema Respiratory: Lungs Clear, Normal Breath Sounds Gastrointestinal: Non Tender, Soft Back: Other (mild paraspinal muscle tightness ) Extremity: Normal Capillary Refill, Normal Inspection, Normal Range of Motion Neurologic/Psychiatric: Alert, Oriented x3 Skin: Normal Color, Warm/Dry Procedures/Interventions Suture Size: 4-0 Progress/Results/Core Measures Results/Orders My Orders Orders - GRUBER,DANITZA L DO Thoracic Spine, 2 Views Only (11/08/22 21:56) Vital Signs/I&O 11/08/22 21:42 Temp 36.6 Pulse 70 Resp 18 B/P (MAP) 115/73 (87) Pulse Ox 98 O2 Delivery Room Air Blood Pressure Mean: 87 Departure Impression Primary Impression: Thoracic radiculopathy Additional Impressions: Strain of thoracic paraspinal muscles excluding T1 and T2 levels Qualified Codes: S29.012A - Strain of muscle and tendon of back wall of thorax, initial encounter Paraspinal muscle spasm Disposition: 01 HOME, SELF-CARE Condition: Stable Departure-Patient Inst. Referrals: [facility] (PCP/Family) Primary Care Physician Patient Instructions: Using Heat for Pain, Muscle Spasm ED, Exercises for Upper Back Pain, Radiculopathy (DC) Add. Discharge Instructions: 4% topical lidocaine with menthol cream gel or patch use as directed on package. Voltaren/diclofenac cream or gel use as directed on package. Warm moist heat to upper back for 10 to 15 minutes at a time 3-4 times daily. May consider massage therapy. Follow-up with your primary care provider to consider physical therapy. All discharge instructions reviewed with patient and/or family. Voiced understanding. Scripts Cyclobenzaprine HCl (Cyclobenzaprine HCl) 5 Mg Tablet 5 MG PO Q6H for Muscle Spasms for 7 Days, #28 TAB Prov: GRUBER,DANITZA L DO 11/08/22 Naproxen (Naproxen) 500 Mg Tablet.dr 500 MG PO BID, #20 TAB Prov: GRUBER,DANITZA L DO 11/08/22 GRUBER,DANITZA L DO Nov 08, 2022 21:56
[2022-11-08] MEDS ORDERED: NAPR500T8 PO (22:01)
[2022-11-08] MEDS ORDERED: CYCL5TAB PO (22:01)
[2022-11-08] MEDS ORDERED: KETOROLAC 30 MG/ML VIAL IM STA (22:39)
[2022-11-08] MEDS ORDERED: ORPHENADRINE 60 MG/2 ML (NORFLEX) AMP (ED ONLY) IM STA (22:39)
--- NOTE | 2022-11-09 07:34 | Diagnostic Imaging Report ---
INDICATION: Mid back pain. Pain with coughing and laughing. EXAMINATION: Thoracic spine 11/08/2022 FINDINGS: 2 views of the thoracic spine Normal height and alignment of the vertebral bodies noted. No acute osseous abnormality is appreciated. Multiple old right rib fractures noted. IMPRESSION: 1. Negative thoracic spine. Dictated by: Dictated on workstation # [id number]
== END 2022-11-08 22:56 | disposition home or self-care (01) ==
LOC: EDUNIT# 21:36 → ER 21:39
DX: S29.012A Strain of muscle and tendon of back wall of thorax, initial encounter (principal); M54.14 Radiculopathy, thoracic region; F17.210 Nicotine dependence, cigarettes, uncomplicated; Z28.310 Unvaccinated for COVID-19; X50.0XXA Overexertion from strenuous movement or load, initial encounter; Y92.69 Other specified industrial and construction area as the place of occurrence of the external cause; Y99.0 Civilian activity done for income or pay
CPT/HCPCS: 72070

== ENCOUNTER 2022-12-18 19:43 | Emergency (ER) | payer SELFPAY ==
[2022-12-18] MEDS ORDERED: RT-ALBUTEROL SULF 2.5 MG/3 ML PRE-MIX VIAL INH ONE (20:15)
[2022-12-18] MEDS ORDERED: predniSONE 20 MG TAB PO ONE (20:15)
--- NOTE | 2022-12-18 20:18 | ED Cough/URI ---
General Chief Complaint: Respiratory Problems Stated Complaint: SOA Source: patient Exam Limitations: no limitations History of Present Illness Date Seen by Provider: Dec 18, 2022 Time Seen by Provider: 20:15 Initial Comments Patient is a 37-year-old male who presents to ED with cough, nasal congestion, sore throat, ear pain body aches and chills. Symptoms started Monday morning. Reported a dry nonproductive cough. Nasal congestion bilateral ear fullness. Started having some shortness of breath today. Went to urgent care diagnosed with walking pneumonia was discharged with azithromycin. Did receive a albuterol inhaler without much improvement. Reports wheezing. Denies of any specific chest pain or abdominal pain. 1 episode of vomiting after coughing today. Denies any diarrhea. Family with similar symptoms. Tested negative for strep and COVID. History of daily smoking. No history of coronary artery disease, known COPD or asthma. Patient main complaint is continuous cough. Patient vital signs stable on arrival. No evidence of respiratory distress. Reports subjective fever chills body aches. Allergies and Home Medications Allergies Coded Allergies: Penicillins (Verified Allergy, Severe, Angioedema, 08/06/21) Sulfa (Sulfonamide Antibiotics) (Verified Allergy, Severe, Angioedema, 08/06/21) propoxyphene (Unverified Allergy, Mild, 08/09/21) shellfish derived (Unverified Allergy, Unknown, RASH, 08/09/21) FROM UNCODED ALLERGIES tramadol (Verified Allergy, Unknown, 11/08/22) Uncoded Allergies: IVORY SOAP (Allergy, Mild, 08/09/21) Patient Home Medication List Home Medication List Reviewed: Yes Albuterol Sulfate (Albuterol Sulfate) 2.5 Mg/0.5 Ml Vial.neb, 2.5 MG INH Q4H Prescribed by: SELINA DASILVA on 12/18/222054 Cyclobenzaprine HCl (Cyclobenzaprine HCl) 10 Mg Tablet, 10 MG PO Q8H PRN for SPASMS Prescribed by: GERALDINE SALAS on 08/17/211912 Cyclobenzaprine HCl (Cyclobenzaprine HCl) 5 Mg Tablet, 5 MG PO Q6H Prescribed by: DANITZA GRUBER on 11/08/222200 Ketorolac Tromethamine (Ketorolac Tromethamine) 10 Mg Tablet, 10 MG PO TID Prescribed by: YUSUF ARAIZA MD on 04/04/22 2322 Linezolid (Zyvox) 600 Mg Tablet, 600 MG PO BID Prescribed by: DEBORAH LAMBERT on 01/16/19 1053 Mupirocin (Mupirocin) 22 Gm Oint...g., 1 GM TOP BID Prescribed by: DEBORAH LAMBERT on 01/16/19 105 Naproxen (Naproxen) 500 Mg Tablet.dr, 500 MG PO BID Prescribed by: DANITZA GRUBER on 11/08/222200 Nirmatrelvir/Ritonavir (Paxlovid 150-100 mg Pack (Eua)) 150 Mg-100 Mg Tablet, 1 EACH PO BID Prescribed by: SELINA DASILVA on 11/05/212125 Prednisone (Prednisone) 20 Mg Tab, 40 MG PO DAILY Prescribed by: SELINA DASILVA on 12/18/22 205 Promethazine HCl (Promethazine Tablet) 25 Mg Tablet, 25 MG PO Q8H PRN for NAUSEA/VOMITING-2ND LINE Prescribed by: KIRSTIN ALMONTE on 09/20/22 0940 Review of Systems Review of Systems Constitutional: chills; No diaphoresis, No fever; malaise, weakness Respiratory: cough, short of breath Cardiovascular: No chest pain Gastrointestinal: No abdominal pain, No diarrhea, No nausea; vomiting Genitourinary: No decreased output, No discharge Musculoskeletal: No back pain, No joint pain Skin: No change in color, No change in hair/nails All Other Systems Reviewed Negative Unless Noted: Yes Past Usegmtg-Cobjtr-Dhsdej Hx Immunizations Up To Date Tetanus Booster (TDap): Less than 5yrs First/Initial COVID19 Vaccinat: NONE Second COVID19 Vaccination [place]: NONE Third COVID19 Vaccination Date: NONE Seasonal Allergies Seasonal Allergies: No Past Medical History Surgery/Hospitalization HX: HERNIA AFTER Surgeries: Yes (HERNIA REPAIR A CHILD. ) Abdominal Respiratory: No Cardiac: No Neurological: No Genitourinary: No Gastrointestinal: No Musculoskeletal: Yes (MULTIPLE fractures including R scapula, R ribs & R clavicle 2019-[facility] [facility]) Fractures Endocrine: No HEENT: No Cancer: No Psychosocial: Yes (SUBSTANCE ABUSE) Integumentary: No Blood Disorders: No Family Medical History Asthma 19 FATHER FH: COPD (chronic obstructive pulmonary disease) 19 FATHER Hypertension 19 FATHER Seizure disorder 19 MOTHER No Pertinent Family Hx, Heart Disease, Cancer, Hypertension SOCIAL HISTORY: -SMOKES 1 PPD -ETOH--OCCASIONAL USE -DRUGS--HX OF SMOKING METH, CLAIMS NONE IN 3 YEARS, ON 08/17/21 Physical Exam Vital Signs - First Documented Capillary Refill : Height: 5'10.00" Weight: 138lbs. 6.0oz. 62.977082eu; 19.00 BMI Method:Stated General Appearance: WD/WN, no apparent distress Eyes: Bilateral Eye Normal Inspection, Bilateral Eye PERRL, Bilateral Eye EOMI HEENT: PERRL/EOMI, normal ENT inspection, pharynx normal, other (Bilateral TMs with very minimal erythema. Without exudate. Oropharynx pain without erythema, swelling, exudate) Neck: non-tender, full range of motion, supple Respiratory: chest non-tender, lungs clear, normal breath sounds, no respiratory distress, no accessory muscle use Cardiovascular: regular rate, rhythm, no edema, no gallop, no JVD Gastrointestinal: normal bowel sounds, non tender, soft, no organomegaly Extremities: normal range of motion, non-tender, normal inspection, no pedal edema Neurologic/Psychiatric: edger runner II-XII nml as tested, no motor/sensory deficits, alert, normal mood/affect, oriented x 3 Skin: normal color, warm/dry Procedures/Interventions Suture Size: 4-0 Progress/Results/Core Measures Suspected Sepsis SIRS Temperature: Pulse: Respiratory Rate: Blood Pressure / Mean: Results/Orders My Orders Orders - KIRSTIN CAMPBELL PA Chest 1 View, Ap/Pa Only (12/18/22 20:14) Prednisone Tablet (Deltasone Tablet) (12/18/22 20:15) Albuterol Pre-Mix Nebs (Rt) (Proventil (12/18/22 20:15) Svn Small Volume Nebulizer (12/18/22 20:14) Medications Given in ED Current Medications Medications Dose Ordered Sig/Erika Route Start Time Stop Time Status Last Admin Dose Admin Albuterol Sulfate 2.5 mg ONCE ONCE INH 12/18/22 20:15 12/18/22 20:16 DC 12/18/22 20:28 2.5 MG Prednisone 50 mg ONCE ONCE PO 12/18/22 20:15 12/18/22 20:16 DC 12/18/22 20:28 50 MG Vital Signs/I&O 12/18/22 12/18/22 12/18/22 12/18/22 19:59 19:59 20:28 20:57 Temp 36.9 36.9 Pulse 78 80 Resp 16 16 B/P (MAP) 138/93 (108) 116/78 Pulse Ox 98 98 96 O2 Delivery Room Air Room Air Room Air Room Air Capillary Refill : Departure Communication (PCP) Reviewed previous ER visits, H&P, lab testing. patient is a 37-year-old male with a history of smoking presents the ED with flulike symptoms, cough nonproductive. Symptoms started on Monday. Patient Was seen at urgent care today diagnosed with walking pneumonia and prescribed azithromycin and albuterol inhaler. Patient concern for the worsening cough and flulike symptoms. Tested negative for strep and COVID. On arrival no acute respiratory distress. Vital signs stable. Differential diagnosis, pneumonia, viral syndrome. Since patient tested negative today added a chest x-ray. Very subtle wheezing. Did receive albuterol nebulizer treatment as well as 50 mg of prednisone. Patient states br eathing seemed to improve after the nebulizer treatment. Chest x-ray was negative for pneumonia. No specific chest pain abdominal pain. Did vomit once after coughing today. Patient does not appear in acute distress. Will discharge with albuterol nebulizer canisters as he has a nebulizer machine at home. Short burst steroids. Continue with your antibiotics as prescribed. Fol low-up with PCP in 2 to 3 days for reevaluation. If any worsening symptoms return back to ED for further evaluation. Patient likely has bronchitis. Discussed smoking cessation. Impression Primary Impression: URI (upper respiratory infection) Disposition: HOME, SELF-CARE Condition: Improved Departure-Patient Inst. Decision time for Depature: 20:54 Referrals: [facility] (PCP/Family) Primary Care Physician Patient Instructions: Upper Respiratory Infection ED Add. Discharge Instructions: Continue with your antibiotics. Breathing treatments as needed. Prednisone as prescribed. Follow-up your PCP in 2 to 3 days for reevaluation. All discharge instructions reviewed with patient and/or family. Voiced understanding. Scripts Albuterol Sulfate (Albuterol Sulfate) 2.5 Mg/0.5 Ml Vial.neb 2.5 MG INH Q4H for SHORTNESS OF BREATH, #30 EACH Prov: KIRSTIN CAMPBELL 12/18/22 Prednisone (Prednisone) 20 Mg Tab 40 MG PO DAILY for 4 Days, #8 TAB Prov: KIRSTIN CAMPBELL 12/18/22 KIRSTIN CAMPBELL Dec 18, 2022 20:18
--- NOTE | 2022-12-18 20:49 | Diagnostic Imaging Report ---
INDICATION: 37-year-old male with cough and shortness of breath. COMPARISONS: 08/17/2021 FINDINGS: Single view of the chest shows normal heart, pleura and diaphragms. No consolidations are seen. There is no effusion or pneumothorax. Soft tissues and bony thorax are unremarkable. IMPRESSION: No acute cardiopulmonary changes. Dictated by: Dictated on workstation # [id number]
[2022-12-18] MEDS ORDERED: PRD20T PO (20:55)
[2022-12-18] MEDS ORDERED: ALB0.5V INH (20:55)
[2022-12-18 20:57] VITALS: BP 116/78
== END 2022-12-18 20:58 | disposition home or self-care (01) ==
LOC: EDUNIT# 19:43 → ER 19:45
DX: J06.9 Acute upper respiratory infection, unspecified (principal); F17.210 Nicotine dependence, cigarettes, uncomplicated; Z28.310 Unvaccinated for COVID-19
CPT/HCPCS: 71045; 94640

== ENCOUNTER 2023-03-07 04:22 | Emergency (ER) | payer SELFPAY ==
[~2023-03-07] VITALS: Ht 180.3 cm; Wt 58.9 kg
[~2023-03-07 04:22] MED LIST changes: +ALB0.5V INH; +PRD20T PO
[2023-03-07] MEDS ORDERED: LACTATED RINGERS 1,000 ML 1,000 ML IV ONE (04:45)
[2023-03-07] MEDS ORDERED: ONDANSETRON INJECTION 4 MG/2 ML (SDV) IVP ONE (04:45)
--- NOTE | 2023-03-07 04:45 | ED General ---
General Chief Complaint: Cough/Cold/Flu Symptoms Stated Complaint: INFLUENZA B,MUSCLES CRAMPING Nursing Triage Note: PATIENT STATES THAT HE TESTED POSITIVE FOR FLU B ON AT [facility]. HE C/O LEG CRAMPING. Source of Information: Patient Exam Limitations: No Limitations History of Present Illness Date Seen by Provider: Mar 07, 2023 Time Seen by Provider: 04:35 Initial Comments This 37-year-old young man presents to the emergency room with complaints of trouble some muscle cramping after being diagnosed with influenza B on March 03. He has been sick for nearly a week. He reports significant nausea, vomiting, and diarrhea. He was previously prescribed Zofran and still has doses at home. Vital signs are unremarkable at this time. He has significant headache. Allergies and Home Medications Allergies Coded Allergies: Penicillins (Verified Allergy, Severe, Angioedema, 08/06/21) Sulfa (Sulfonamide Antibiotics) (Verified Allergy, Severe, Angioedema, 08/06/21) propoxyphene (Unverified Allergy, Mild, 08/09/21) shellfish derived (Unverified Allergy, Unknown, RASH, 08/09/21) FROM UNCODED ALLERGIES tramadol (Verified Allergy, Unknown, 11/08/22) Uncoded Allergies: IVORY SOAP (Allergy, Mild, 08/09/21) Patient Home Medication List Home Medication List Reviewed: Yes Albuterol Sulfate (Albuterol Sulfate) 2.5 Mg/0.5 Ml Vial.neb, 2.5 MG INH Q4H Prescribed by: SELINA DASILVA on 12/18/222054 Cyclobenzaprine HCl (Cyclobenzaprine HCl) 10 Mg Tablet, 10 MG PO Q8H PRN for SPASMS Prescribed by: GERALDINE SALAS on 08/17/211912 Cyclobenzaprine HCl (Cyclobenzaprine HCl) 5 Mg Tablet, 5 MG PO Q6H Prescribed by: DANITZA GRUBER on 11/08/222200 Ketorolac Tromethamine (Ketorolac Tromethamine) 10 Mg Tablet, 10 MG PO TID Prescribed by: YUSUF ARAIZA MD on 04/04/22 2322 Linezolid (Zyvox) 600 Mg Tablet, 600 MG PO BID Prescribed by: DEBORAH LAMBERT on 01/16/19 1053 Mupirocin (Mupirocin) 22 Gm Oint...g., 1 GM TOP BID Prescribed by: DEBORAH LAMBERT on 01/16/19 1053 Naproxen (Naproxen) 500 Mg Tablet.dr, 500 MG PO BID Prescribed by: DANITZA GRUBER on 11/08/222200 Nirmatrelvir/Ritonavir (Paxlovid 150-100 mg Pack (Eua)) 150 Mg-100 Mg Tablet, 1 EACH PO BID Prescribed by: SELINA DASILVA on 11/05/212125 Prednisone (Prednisone) 20 Mg Tab, 40 MG PO DAILY Prescribed by: SELINA DASILVA on 12/18/222054 Promethazine HCl (Promethazine Tablet) 25 Mg Tablet, 25 MG PO Q8H PRN for NAUSEA/VOMITING-2ND LINE Prescribed by: KIRSTIN ALMONTE on 09/20/22 0940 Review of Systems Review of Systems Constitutional: see HPI EENTM: no symptoms reported Respiratory: no symptoms reported Cardiovascular: no symptoms reported Gastrointestinal: see HPI Genitourinary: no symptoms reported Musculoskeletal: see HPI Skin: no symptoms reported Psychiatric/Neurological: See HPI Hematologic/Lymphatic: No Symptoms Reported Past Samzjzo-Qxlflk-Bcoaoi Hx Patient Social History Tobacco Use?: Yes Smoking Status: Current Everyday Smoker Use of E-Cig and/or Vaping dev: No Substance use?: Yes Substance type: Marijuana Alcohol Use?: Yes Alcohol Frequency: Several times a month Immunizations Up To Date Tetanus Booster (TDap): Less than 5yrs First/Initial COVID19 Vaccinat: NONE Second COVID19 Vaccination Garfield: NONE Third COVID19 Vaccination Date: NONE Seasonal Allergies Seasonal Allergies: No Past Medical History Surgery/Hospitalization HX: HERNIA AFTER Surgeries: Yes (HERNIA REPAIR A CHILD. ) Abdominal Respiratory: No Cardiac: No Neurological: No Genitourinary: No Gastrointestinal: No Musculoskeletal: Yes (MULTIPLE fractures including R scapula, R ribs & R clavicle 2019-[facility]) Fractures Endocrine: No HEENT: No Cancer: No Psychosocial: Yes (SUBSTANCE ABUSE) Integumentary: No Blood Disorders: No Family Medical History Asthma 19 FATHER FH: COPD (chronic obstructive pulmonary disease) 19 FATHER Hypertension 19 FATHER Seizure disorder 19 MOTHER No Pertinent Family Hx, Heart Disease, Cancer, Hypertension SOCIAL HISTORY: -SMOKES 1 PPD -ETOH--OCCASIONAL USE -DRUGS--HX OF SMOKING METH, CLAIMS NONE IN 3 YEARS, ON 08/17/21 Physical Exam Vital Signs Vital Signs - First Documented 03/07/23 04:32 Temp 36.9 Pulse 92 Resp 16 B/P (MAP) 112/89 (97) Pulse Ox 96 O2 Delivery Room Air Capillary Refill : Greater Than 3 Seconds Height, Weight, BMI Height: 5'10.00" Weight: 138lbs. 6.0oz. 62.249884xy; 18.00 BMI Method:Stated General Appearance: No Apparent Distress, WD/WN, Thin HEENT: PERRL/EOMI, Normal ENT Inspection, Other (oropharynx somewhat dry) Neck: Normal Inspection Respiratory: Lungs Clear, Normal Breath Sounds, No Accessory Muscle Use Cardiovascular: Regular Rate, Rhythm, No Edema, No Murmur Gastrointestinal: Normal Bowel Sounds, Non Tender, Soft; No Distended Extremity: Normal Inspection, Non Tender Neurologic/Psychiatric: Alert, Oriented x3, No Motor/Sensory Deficits, Normal Mood/Affect Skin: Normal Color, Warm/Dry Procedures/Interventions Suture Size: 4-0 Progress/Results/Core Measures Suspected Sepsis SIRS Temperature: Pulse: 92 Respiratory Rate: 16 Laboratory Tests 03/07/23 05:08: White Blood Count 3.6L Blood Pressure 112 /89 Mean: 97 Laboratory Tests 03/07/23 05:08: Creatinine 0.96, Platelet Count 144, Total Bilirubin 0.4 Results/Orders Lab Results Laboratory Tests Test 03/07/23 05:08 Range/Units White Blood Count 3.6 L 4.3-11.0 10^3/uL Red Blood Count 5.64 H 4.30-5.52 10^6/uL Hemoglobin 17.3 13.3-17.7 g/dL Hematocrit 49 40-54 % Mean Corpuscular Volume 87 80-99 fL Mean Corpuscular Hemoglobin 31 25-34 pg Mean Corpuscular Hemoglobin Concent 35 32-36 g/dL Red Cell Distribution Width 11.8 10.0-14.5 % Platelet Count 144 130-400 10^3/uL Mean Platelet Volume 9.8 9.0-12.2 fL Immature Granulocyte % (Auto) 0 % Neutrophils (%) (Auto) 59 42-75 % Lymphocytes (%) (Auto) 28 12-44 % Monocytes (%) (Auto) 12 0-12 % Eosinophils (%) (Auto) 0 0-10 % Basophils (%) (Auto) 1 0-10 % Neutrophils # (Auto) 2.1 1.8-7.8 10^3/uL Lymphocytes # (Auto) 1.0 1.0-4.0 10^3/uL Monocytes # (Auto) 0.4 0.0-1.0 10^3/uL Eosinophils # (Auto) 0.0 0.0-0.3 10^3/uL Basophils # (Auto) 0.0 0.0-0.1 10^3/uL Immature Granulocyte # (Auto) 0.0 0.0-0.1 10^3/uL Sodium Level 136 135-145 MMOL/L Potassium Level 4.0 3.6-5.0 MMOL/L Chloride Level 101 98-107 MMOL/L Carbon Dioxide Level 23 21-32 MMOL/L Anion Gap 12 5-14 MMOL/L Blood Urea Nitrogen 10 7-18 MG/DL Creatinine 0.96 0.60-1.30 MG/DL Estimat Glomerular Filtration Rate 105 BUN/Creatinine Ratio 10 Glucose Level 104 70-105 MG/DL Calcium Level 8.8 8.5-10.1 MG/DL Corrected Calcium 8.6 8.5-10.1 MG/DL Magnesium Level 2.1 1.6-2.4 MG/DL Total Bilirubin 0.4 0.1-1.0 MG/DL Aspartate Amino Transf (AST/SGOT) 72 H 5-34 U/L Alanine Aminotransferase (ALT/SGPT) 35 0-55 U/L Alkaline Phosphatase 65 40-136 U/L Total Protein 6.9 6.4-8.2 GM/DL Albumin 4.3 3.2-4.5 GM/DL My Orders Orders - JAN GALLO MD Cbc And Automated Diff (03/07/23 04:44) Comprehensive Metabolic Panel (03/07/23 04:44) Magnesium (03/07/23 04:44) Ed Iv/Invasive Line Start (03/07/23 04:44) Lactated Ringers 1,000 Ml (Lactated Ring (03/07/23 04:45) Ondansetron Injection (Ondansetron Inj (03/07/23 04:45) Ketorolac Injection (Ketorolac Injection (03/07/23 06:00) Medications Given in ED Vital Signs/I&O 03/07/23 03/07/23 03/07/23 04:32 04:43 06:38 Temp 36.9 Pulse 92 87 Resp 16 18 B/P (MAP) 112/89 (97) 131/78 Pulse Ox 96 96 O2 Delivery Room Air Room Air Room Air Capillary Refill : Greater Than 3 Seconds Blood Pressure Mean: 97 Progress Note : Progress Note Labs were obtained and interpreted by me. CBC was unremarkable. Minimal leukopenia of 3.6 was noted. CMP and magnesium were unremarkable. He was given Zofran for nausea and Toradol for headache. A liter of LR was infused. Patient was stable and therefore discharged home after treatment. See discharge instru ctions for further discussion. Departure Impression Primary Impression: Influenza B Additional Impressions: Nausea vomiting and diarrhea Muscle cramping Disposition: 01 HOME, SELF-CARE Condition: Improved Departure-Patient Inst. Decision time for Depature: 06:30 Referrals: [facility] (PCP/Family) Primary Care Physician Patient Instructions: Flu, Adult (DC) Add. Discharge Instructions: Continue to drink plenty of clear liquids. You may continue taking Zofran as prescribed for nausea and vomiting. You may take Tylenol (acetaminophen) up to 1000 mg every 6 hours as needed for fever or pain. You may also take ibuprofen up to 600 mg every 6 hours as needed. Return to care if you have worsening symptoms despite following these instructions. All discharge instructions reviewed with patient and/or family. Voiced understanding. Work/School Note: Work Release Form Date Seen in the Emergency Department: Mar 07, 2023 Return to Work: Mar 09, 2023 Restrictions: No Restrictions JAN GALLO MD Mar 07, 2023 04:45
[2023-03-07 05:22] LABS: BASOPHILS % (AUTO) 1 % (0-10); EOSINOPHILS % (AUTO) 0 % (0-10); HEMATOCRIT 49 % (40-54); HEMOGLOBIN 17.3 g/dL (13.3-17.7); LYMPHOCYTES % (AUTO) 28 % (12-44); MEAN CORPUSCULAR HEMOGLOBIN 31 pg (25-34); MEAN CORPUSCULAR HGB CONC 35 g/dL (32-36); MEAN CORPUSCULAR VOLUME 87 fL (80-99); MEAN PLATELET VOLUME 9.8 fL (9.0-12.2); MONOCYTES # (AUTO) 0.4 10^3/uL (0.0-1.0); MONOCYTES % (AUTO) 12 % (0-12); NEUTROPHILS # (AUTO) 2.1 10^3/uL (1.8-7.8); NEUTROPHILS % (AUTO) 59 % (42-75); PLATELET COUNT 144 10^3/uL (130-400); WHITE BLOOD COUNT 3.6 10^3/uL (4.3-11.0)
[2023-03-07 05:33] LABS: ALBUMIN 4.3 GM/DL (3.2-4.5)
[2023-03-07 05:35] LABS: CALCIUM 8.8 MG/DL (8.5-10.1)
[2023-03-07 05:36] LABS: TOTAL PROTEIN 6.9 GM/DL (6.4-8.2)
[2023-03-07 05:38] LABS: BILIRUBIN,TOTAL 0.4 MG/DL (0.1-1.0)
[2023-03-07 05:39] LABS: CREATININE SERUM 0.96 MG/DL (0.60-1.30)
[2023-03-07 05:42] LABS: MAGNESIUM 2.1 MG/DL (1.6-2.4)
[2023-03-07] MEDS ORDERED: KETOROLAC INJ 30 MG/ML VIAL IVP ONE (06:00)
[2023-03-07 06:38] VITALS: BP 131/78
== END 2023-03-07 06:38 | disposition home or self-care (01) ==
LOC: EDUNIT# 04:22 → ER 04:26
DX: J10.1 Influenza due to other identified influenza virus with other respiratory manifestations (principal); D72.819 Decreased white blood cell count, unspecified; F17.210 Nicotine dependence, cigarettes, uncomplicated; Z28.310 Unvaccinated for COVID-19
CPT/HCPCS: 36415; 80053; 83735; 85025

== ENCOUNTER 2023-04-10 21:19 | Emergency (ER) | payer SELFPAY ==
[2023-04-10] MEDS ORDERED: FLUORESCEIN 1 MG OPHTHALMIC STRIPS ONE (21:30)
[2023-04-10] MEDS ORDERED: TETRACAINE 0.5% OPHTH SOLN 5 ML BTL OP ONE (21:30)
[2023-04-10] MEDS ORDERED: FLUORESCEIN 1 MG OPHTHALMIC STRIPS OP ONE (21:30)
[2023-04-10] MEDS ORDERED: TETRACAINE 0.5% OPHTH SOLN 4 ML BTL (SINGLE DOSE ONLY) ONE (21:30)
[2023-04-10] MEDS ORDERED: Tetanus/Diphtheria/Pertussis (Acell) ADULT Vaccine 0.5 ML IM ONE (21:45)
[2023-04-10] MEDS ORDERED: TETRACAINE 0.5% OPHTH SOLN 4 ML BTL (SINGLE DOSE ONLY) OD ONE (21:45)
--- NOTE | 2023-04-10 21:50 | ED EENT ---
History of Present Illness General Chief Complaint: Eye Problems Stated Complaint: METAL IN RIGHT EYE Source: patient Exam Limitations: no limitations History of Present Illness Date Seen by Provider: Apr 10, 2023 Time Seen by Provider: 21:58 Initial Comments Patient is a 37-year-old male who presents to ED for potential foreign body in right eye. Patient was grinding around 6 PM this evening. Carmen something go underneath his glasses hitting his eye. Reports some burning sensation of the eye but no loss of vision. Does wear glasses. Not up-to-date on his tetanus within the past 5 years. Patient did irrigate at home. Noted a small dark spot on his cornea. Patient also reports a stye to his left eye. Noted area of swelling to the left lower eyelid. History of a stye to this same exact location in the past. Reports a mild purulent drainage. Denies fever chills, nausea, vomit, diarrhea, headache or dizziness. Allergies and Home Medications Allergies Coded Allergies: Penicillins (Verified Allergy, Severe, Angioedema, 08/06/21) Sulfa (Sulfonamide Antibiotics) (Verified Allergy, Severe, Angioedema, 08/06/21) propoxyphene (Unverified Allergy, Mild, 08/09/21) shellfish derived (Unverified Allergy, Unknown, RASH, 08/09/21) FROM UNCODED ALLERGIES tramadol (Verified Allergy, Unknown, 11/08/22) Uncoded Allergies: IVORY SOAP (Allergy, Mild, 08/09/21) Patient Home Medication List Home Medication List Reviewed: Yes Albuterol Sulfate (Albuterol Sulfate) 2.5 Mg/0.5 Ml Vial.neb, 2.5 MG INH Q4H Prescribed by: SELINA DASILVA on 12/18/222054 Cyclobenzaprine HCl (Cyclobenzaprine HCl) 10 Mg Tablet, 10 MG PO Q8H PRN for SPASMS Prescribed by: GERALDINE SALAS on 08/17/211912 Cyclobenzaprine HCl (Cyclobenzaprine HCl) 5 Mg Tablet, 5 MG PO Q6H Prescribed by: DANITZA GRUBER on 11/08/222200 Ketorolac Tromethamine (Ketorolac Tromethamine) 10 Mg Tablet, 10 MG PO TID Prescribed by: YUSUF ARAIZA MD on 10/31/22 2322 Linezolid (Zyvox) 600 Mg Tablet, 600 MG PO BID Prescribed by: DEBORAH LAMBERT on 01/16/19 105 Mupirocin (Mupirocin) 22 Gm Oint...g., 1 GM TOP BID Prescribed by: DEBORAH LAMBERT on 01/16/19 105 Naproxen (Naproxen) 500 Mg Tablet.dr, 500 MG PO BID Prescribed by: DANITZA GRUBER on 11/08/222200 Nirmatrelvir/Ritonavir (Paxlovid 150-100 mg Pack (Eua)) 150 Mg-100 Mg Tablet, 1 EACH PO BID Prescribed by: SELINA DASILVA on 11/05/212125 Prednisone (Prednisone) 20 Mg Tab, 40 MG PO DAILY Prescribed by: SELINA DASILVA on 12/18/222054 Promethazine HCl (Promethazine Tablet) 25 Mg Tablet, 25 MG PO Q8H PRN for NAUSEA/VOMITING-2ND LINE Prescribed by: KIRSTIN ALMONTE on 09/20/22 0940 Review of Systems Review of Systems Constitutional: No chills, No diaphoresis Eyes: Denies Drainage; Foreign Body Sensation, Pain Ears: Denies Dizziness, Denies Pain Nose: denies clots, denies congestion Mouth: denies clots, denies loose teeth Throat: denies pain, denies swelling Respiratory: No cough, No dyspnea on exertion Cardiovascular: No chest pain, No edema Gastrointestinal: No abdominal pain, No diarrhea, No nausea, No vomiting Musculoskeletal: No back pain, No joint pain Skin: No change in color, No change in hair/nails All Other Systems Reviewed Negative Unless Noted: Yes Past Hdancdy-Syyxgf-Zrsmlv Hx Immunizations Up To Date Tetanus Booster (TDap): Less than 5yrs First/Initial COVID19 Vaccinat: NONE Second COVID19 Vaccination Garfield: NONE Third COVID19 Vaccination Date: NONE Seasonal Allergies Seasonal Allergies: No Past Medical History Surgery/Hospitalization HX: HERNIA AFTER Surgeries: Yes (HERNIA REPAIR A CHILD. ) Abdominal Respiratory: No Cardiac: No Neurological: No Genitourinary: No Gastrointestinal: No Musculoskeletal: Yes (MULTIPLE fractures including R scapula, R ribs & R clavicle 2019-[facility]) Fractures Endocrine: No HEENT: No Cancer: No Psychosocial: Yes (SUBSTANCE ABUSE) Integumentary: No Blood Disorders: No Family Medical History Asthma 19 FATHER FH: COPD (chronic obstructive pulmonary disease) 19 FATHER Hypertension 19 FATHER Seizure disorder 19 MOTHER No Pertinent Family Hx, Heart Disease, Cancer, Hypertension SOCIAL HISTORY: -SMOKES 1 PPD -ETOH--OCCASIONAL USE -DRUGS--HX OF SMOKING METH, CLAIMS NONE IN 3 YEARS, ON 08/17/21 Physical Exam Height, Weight, BMI Height: 5'10.00" Weight: 138lbs. 6.0oz. 62.716064va; 18.00 BMI Method:Stated General Appearance: WD/WN, no apparent distress Eyes: right eye other (No obvious foreign body of the right eye. Very minimal erythematous injection. Extraocular movements intact. Pupils reactive to light. No significant uptake. Negative seatbelt sign. No hyphema. left lower eyelid external stye. Mild purulent drainage. No periorbital swelling or erythema.) Ears: bilateral ear auricle normal, bilateral ear canal normal, bilateral ear TM normal Nose: normal inspection Mouth/Throat: normal mouth inspection, pharynx normal Neck: non-tender, full range of motion, supple Cardiovascular: regular rate, rhythm, no edema, no gallop, no JVD Respiratory: chest non-tender, lungs clear, normal breath sounds, no respiratory distress, no accessory muscle use Gastrointestinal: normal bowel sounds Neurologic/Psychiatric: horseradish grinder II-XII nml as tested, no motor/sensory deficits, alert, normal mood/affect, oriented x 3 Skin: normal color, warm/dry Procedures/Interventions Suture Size: 4-0 Progress/Results/Core Measures Results/Orders My Orders Orders - KIRSTIN CAMPBELL Tetracaine 0.5% Ophth Soln (Tetravisc 0. (04/10/23 21:30) Fluorescein Ophthalmic Strips (Fluoresce (04/10/23 21:30) Fluorescein Ophthalmic Strips (Fluoresce (04/10/23 21:30) Tetracaine 0.5% Ophth Brenna Sdv (Tetracai (04/10/23 21:30) Tetracaine 0.5% Ophth Brenna Sdv (Tetracai (04/10/23 21:45) Dipht/Pertuss(Acell)/Tet Adult (Dipht/Pe (04/10/23 21:45) Rx-Poly/Trimeth Ophth (Rx-Polytrim Ophth (04/10/23 22:00) Rx-Gentamicin Ophth Soln (Rx-Gentamicin (04/10/23 22:00) Rx-Gentamicin Ophth Soln (Rx-Gentamicin (04/10/23 21:52) Medications Given in ED Current Medications Medications Dose Ordered Sig/Erika Route Start Time Stop Time Status Last Admin Dose Admin Diphtheria/ Tetanus/Acell Pertussis 0.5 ml ONCE ONCE IM 04/10/23 21:45 04/10/23 21:46 DC 04/10/23 22:02 0.5 ML Fluorescein Sodium ONCE ONCE OP 04/10/23 21:30 04/10/23 21:31 DC 04/10/23 21:33 1 MG Gentamicin Sulfate 1 ml ONCE ONCE OP 04/10/23 22:00 04/10/23 22:01 DC 04/10/23 22:00 1 ML Tetracaine HCl 4 ml STK-MED ONCE .ROUTE 04/10/23 21:30 04/10/23 21:34 DC 04/10/23 21:36 4 ML Departure Communication (PCP) Differential diagnoses foreign body right eye, eye irritation, stye. He does have a stye to the left eye with a known history. pea size to the left lower external eyelid. No visual changes to the left eye. Patient is concern for potential foreign body the right eye. Patient was grinding around 6 PM. Concern for a metal foreign body. Did irrigate at home. On exam without fluorescein did not see any obvious foreign body. Very minimal erythematous injection. Pupils reactive light. Extraocular movements intact. Updated patient's tetanus. Exam of the right eye with fluorescein eye strip did not show any significant uptake or foreign body. Negative for hyphema or Regina sign. Irrigated with 50 mls of normal saline. Potentially had a foreign body and could have fell out. However I would suspect seeing a abrasion or an area of uptake. At this time will discharge with gentamicin. Suggest warm compresses to the left eye. Ophthalmology outpatient follow-up in the next 1 to 2 days for reevaluation. If any visual loss visual changes to return back to ED. Impression Primary Impression: Stye Additional Impression: Eye irritation Disposition: HOME, SELF-CARE Condition: Stable Departure-Patient Inst. Decision time for Depature: 21:49 Referrals: [facility] (PCP/Family) Primary Care Physician GERBER MCKEON OD Patient Instructions: Sarah (DC) Add. Discharge Instructions: Take the gentamicin solution 1 to 2 drops every 4 hours for 7 days. If continue having eye discomfort suggest following up with eye care for further evaluation. If any worsening symptoms such as loss of vision to return back to ED. All discharge instructions reviewed with patient and/or family. Voiced understanding. KIRSTIN CAMPBELL Apr 10, 2023 21:50
[2023-04-10] MEDS ORDERED: RX-GENTAMICIN SULFATE 0.3% OP 5 ML BTL ONE (21:52)
[2023-04-10] MEDS ORDERED: RX-POLY/TRIMETH (POLYTRIM) OP 10 ML BTL OP ONE (22:00)
[2023-04-10] MEDS ORDERED: RX-GENTAMICIN SULFATE 0.3% OP 5 ML BTL OP ONE (22:00)
[2023-04-10 22:02] VITALS: BP 122/89
== END 2023-04-10 22:02 | disposition home or self-care (01) ==
LOC: EDUNIT# 21:19 → ER 21:20
DX: H00.013 Hordeolum externum right eye, unspecified eyelid (principal); F17.210 Nicotine dependence, cigarettes, uncomplicated; Z23 Encounter for immunization
CPT/HCPCS: 90715; 99284